=== PATIENT | male | born 1975 | race Hispanic/Latino ===

== ENCOUNTER 2021-11-06 16:00 | Emergency (ER) | payer SELFPAY ==
[~2021-11-06] VITALS: Ht 165.1 cm; Wt 53.6 kg
[2021-11-06] VITALS (12 sets, daily range): BP systolic 86–145; BP diastolic 53–87
[2021-11-06 17:59] LABS: HEMATOCRIT 43.4 % (39.0-50.0); HEMOGLOBIN 14.9 g/dl (14.0-18.0); MEAN CELL VOLUME 84.8 fL CALC (80.0-100.0); MEAN CORPUSCULAR HGB 29.1 pG CALC (26.0-32.0); MEAN CORPUSCULAR HGB CONC 34.3 g/dL CAL (32.0-36.0); NEUT# 1.89 thou/uL (1.82-7.42); RED BLOOD COUNT 5.12 mill/uL (4.70-6.10)
[2021-11-06 18:12] LABS: ALBUMIN 3.8 g/dL (3.2-5.0); ALKALINE PHOSPHATASE 176 u/l (38-126); BILIRUBIN, TOTAL 0.6 mg/dL (0.0-1.4); BUN 13 mg/dL (9-20); BUN/CREATININE RATIO 13 (12-20 (CALC)); CARBON DIOXIDE 24 mmol/l (22-30); CHLORIDE 110 mmol/l (95-108); CREATININE 1.1 mg/dL (0.7-1.3); GFR FOR AFR.AMER. > 60 ML/MIN (>=60 (CALC)); GFR OTHER RACES > 60 ML/MIN (>=60 (CALC)); SGOT/AST 124 u/l (17-59); SODIUM 141 mmol/l (137-146); TOTAL PROTEIN 6.7 g/dL (6.3-8.2)
[2021-11-06 18:22] LABS: ANION GAP 11 (6-22 (CALC)); POTASSIUM 4.3 mmol/l (3.5-5.1)
[2021-11-06 21:02] LABS: URINE BILIRUBIN - DIPSTICK NEGATIVE (NEGATIVE); URINE BLOOD DIPSTICK TRACE-INTACT (NEGATIVE); URINE COLOR YELLOW; URINE GLUCOSE - DIPSTICK NEGATIVE (NEGATIVE); URINE KETONE NEGATIVE (NEGATIVE); URINE LEUK ESTERASE NEGATIVE (NEGATIVE); URINE PROTEIN - DIPSTICK 30 mg/dL (NEG-TRACE); URINE SPECIFIC GRAVITY 1.025
[2021-11-06 21:04] LABS: URINE NITRITE - DIPSTICK NEGATIVE (Negative)
[2021-11-06 21:05] LABS: URINE RBC 0-2 RBC/hpf (0-5); URINE WBC 0-2 WBC/hpf (0-5)
[2021-11-06] MEDS ORDERED: PROMETHAZINE HY25 M1 PO (21:11)
[2021-11-06] MEDS ORDERED: DICYCLOMINE10 MG PO (21:11)
== END 2021-11-06 21:43 | disposition home or self-care (01) | DRG 392 ==
LOC: ED 16:00
PROVIDERS: Family Medicine
DX: A08.4 Viral intestinal infection, unspecified (principal); Z20.822 Contact with and (suspected) exposure to COVID-19
CPT/HCPCS: Q9967

== ENCOUNTER 2022-06-15 22:04 | Emergency (ER) | payer SELFPAY ==
[~2022-06-15] VITALS: Ht 165.1 cm; Wt 54.0 kg
[~2022-06-15 22:04] MED LIST: DICYCLOMINE10 MG PO; PROMETHAZINE HY25 M1 PO
[2022-06-16 01:29] LABS: BASO% 0.9 % (0-3); EOS% 1.3 % (0-8); HEMATOCRIT 44.1 % (39.0-50.0); HEMOGLOBIN 14.6 g/dl (14.0-18.0); IMMATURE GRANULOCYTES 0.5 % (0.0-5.0); LYMPH% 40.8 % (15-41); MEAN CELL VOLUME 86.3 fL CALC (80.0-100.0); MEAN CORPUSCULAR HGB 28.6 pG CALC (26.0-32.0); MEAN CORPUSCULAR HGB CONC 33.1 g/dL CAL (32.0-36.0); MONO% 8.2 % (2-13); NEUT# 3.06 thou/uL (1.82-7.42); NEUT% 48.3 % (42-76); RED BLOOD COUNT 5.11 mill/uL (4.70-6.10); RED CELL DISTRI WIDTH 12.8 % (11.5-15.5)
[2022-06-16 01:48] LABS: AMYLASE 72 u/l (30-110); ANION GAP 12 (6-22 (CALC)); BUN 10 mg/dL (9-20); BUN/CREATININE RATIO 13 (12-20 (CALC)); CARBON DIOXIDE 26 mmol/l (22-30); CHLORIDE 105 mmol/l (95-108); CREATININE 0.7 mg/dL (0.7-1.3); GFR FOR AFR.AMER. > 60 ML/MIN (>=60 (CALC)); GFR OTHER RACES > 60 ML/MIN (>=60 (CALC)); LIPASE 61 u/l (23-300); POTASSIUM 3.9 mmol/l (3.5-5.1); SGOT/AST 40 u/l (17-59); SODIUM 139 mmol/l (137-146); TOTAL PROTEIN 7.5 g/dL (6.3-8.2)
[2022-06-16 01:49] LABS: ALBUMIN 4.6 g/dL (3.2-5.0); ALKALINE PHOSPHATASE 77 u/l (38-126); BILIRUBIN, TOTAL 1.2 mg/dL (0.2-1.3)
[2022-06-16 03:02] LABS: URINE BILIRUBIN - DIPSTICK NEGATIVE (NEGATIVE); URINE BLOOD DIPSTICK TRACE-INTACT (NEGATIVE); URINE COLOR YELLOW; URINE GLUCOSE - DIPSTICK NEGATIVE (NEGATIVE); URINE KETONE NEGATIVE (NEGATIVE); URINE LEUK ESTERASE NEGATIVE (NEGATIVE); URINE PROTEIN - DIPSTICK NEGATIVE (NEG-TRACE); URINE UROBILINOGEN - DIPSTICK 0.2 E.U./dL (0.2)
[2022-06-16 03:04] LABS: URINE NITRITE - DIPSTICK NEGATIVE (Negative)
[2022-06-16] MEDS ORDERED: PREVACID30 M1 PO (06:33)
[2022-06-16 06:38] VITALS: BP 112/77
== END 2022-06-16 06:52 | disposition home or self-care (01) | DRG 392 ==
LOC: ED 22:04
PROVIDERS: Emergency Medicine
DX: K29.70 Gastritis, unspecified, without bleeding (principal); Z20.822 Contact with and (suspected) exposure to COVID-19

== ENCOUNTER 2022-07-17 10:30 | Emergency (ER) | payer SELFPAY ==
[~2022-07-17] VITALS: Ht 160 cm; Wt 52.6 kg
[~2022-07-17 10:30] MED LIST changes: +PREVACID30 M1 PO
[2022-07-17 11:26] LABS: BASO% 0.5 % (0-3); EOS% 0.4 % (0-8); HEMATOCRIT 44.4 % (39.0-50.0); HEMOGLOBIN 14.7 g/dl (14.0-18.0); IMMATURE GRANULOCYTES 0.2 % (0.0-5.0); LYMPH% 32.6 % (15-41); MEAN CELL VOLUME 87.6 fL CALC (80.0-100.0); MEAN CORPUSCULAR HGB CONC 33.1 g/dL CAL (32.0-36.0); NEUT# 3.43 thou/uL (1.82-7.42); NEUT% 61.3 % (42-76); RED BLOOD COUNT 5.07 mill/uL (4.70-6.10); RED CELL DISTRI WIDTH 13.5 % (11.5-15.5)
[2022-07-17 11:39] LABS: ALBUMIN 4.5 g/dL (3.2-5.0); ALKALINE PHOSPHATASE 67 u/l (38-126); ANION GAP 16 (6-22 (CALC)); BUN 8 mg/dL (9-20); BUN/CREATININE RATIO 14 (12-20 (CALC)); CARBON DIOXIDE 22 mmol/l (22-30); CHLORIDE 108 mmol/l (95-108); CREATININE 0.6 mg/dL (0.7-1.3); GFR FOR AFR.AMER. > 60 ML/MIN (>=60 (CALC)); GFR OTHER RACES > 60 ML/MIN (>=60 (CALC)); POTASSIUM 4.3 mmol/l (3.5-5.1); SGOT/AST 40 u/l (17-59); SODIUM 142 mmol/l (137-146); TOTAL PROTEIN 6.9 g/dL (6.3-8.2)
[2022-07-17 11:47] LABS: URINE BILIRUBIN - DIPSTICK NEGATIVE (NEGATIVE); URINE BLOOD DIPSTICK TRACE-INTACT (NEGATIVE); URINE CLARITY CLEAR; URINE COLOR YELLOW; URINE GLUCOSE - DIPSTICK NEGATIVE (NEGATIVE); URINE KETONE NEGATIVE (NEGATIVE); URINE LEUK ESTERASE NEGATIVE (Negative); URINE NITRITE - DIPSTICK NEGATIVE (Negative); URINE PROTEIN - DIPSTICK NEGATIVE (NEG-TRACE); URINE UROBILINOGEN - DIPSTICK 0.2 E.U./dL (0.2)
[2022-07-17 12:00] VITALS: BP 95/53
[2022-07-17 12:30] VITALS: BP 98/62
[2022-07-17 13:00] VITALS: BP 98/63
[2022-07-17] MEDS ORDERED: PROTONIX40 M2 PO (13:05)
[2022-07-17 13:30] VITALS: BP 95/60
[2022-07-17 13:37] VITALS: BP 95/60
== END 2022-07-17 14:00 | disposition home or self-care (01) | DRG 948 ==
LOC: ED 10:30
PROVIDERS: Family Medicine
DX: R53.1 Weakness (principal); K29.70 Gastritis, unspecified, without bleeding
CPT/HCPCS: S0164